=== PATIENT | male | born 1990 | race Caucasian/White ===

== ENCOUNTER 2020-08-01 02:06 | Emergency (ER) | payer BC, OTHER ==
[2020-08-01 02:36] VITALS: PULSE 75
[2020-08-01] MEDS ORDERED: Ketorolac 30 MG/ML SDV IM ONE (02:48)
[2020-08-01] MEDS ORDERED: Penicillin V Potassium Soln 250 MG/5 ML 100 ML Bottle PO ONE (02:48)
--- NOTE | 2020-08-01 02:48 | EDM.PDOC ---
ED HPI GENERAL MEDICAL PROBLEM - General Chief Complaint: General Stated Complaint: TOOTH PAIN Time Seen by Provider: 08/01/20 02:45 - History of Present Illness INITIAL COMMENTS - FREE TEXT/NARRATIVE: History of present illness: The patient has suffered for a month with a toothache in the right side of his jaw especially in the molar on the mandibular side. Tonight he was unable to sleep because it hurt so bad even the ice pack cardiac. He has bad teeth throughout but this is becoming making quite a problem. He has no systemic signs of infections. He has no heart murmur by history. He is not diabetic. He does not smoke. Pain is unbearable and severe. Cold air cold liquids hot liquids makes it worse. Review of systems: As per history of present illness and below otherwise all systems reviewed and negative. Past medical history: As per history of present illness and as reviewed below otherwise noncontributory. Surgical history: As per history of present illness and as reviewed below otherwise noncontri butory. Social history: No reported history of drug or alcohol abuse. Family history: As per history of present illness and as reviewed below otherwise noncontributory. Physical exam: Constitutional - well developed, well-nourished and in no acute distress HEENT -patient has buried #32 with incomplete eruption and exquisite tenderness in that area with periodontal disease as well. He has multiple caries including this teeth. Normocephalic, no evidence of trauma - external nose and mouth normal - no mass in neck and no JVD - mucosae moist EYES - full EOM, PERRL, no icterus - no evidence of inflammation, injection, or drainage Respiratory - no respiratory distress, equal bilateral expansion, lungs clear to auscultation and no abnormal lung sounds Cardiovascular - Regular Rhythm with S1 and S2 appreciated and no murmur, gallop or rub. Musculoskeletal no gross deformity of long bones or joints - no tenderness, swelling or edema Neurologic - Alert and oriented times four - CN II-XII grossly intact - motor sensory and coordination symmetrically normal Psychiatric - appropriate mood and affect with normal thought content Hematologic - No petechiae or purpura - mucosa appropriate color and sclera not pale - normal nail bed color and refill Integument - no rash or evidence of trauma - normal turgor Diagnostics: [] Therapeutics: [] Impression: [] Plan: [] Definitive disposition and diagnosis as appropriate pending reevaluation and review of above. tooth Pain Score (Numeric/FACES): 4 - Related Data Allergies Allergy/AdvReac Type Severity Reaction Status Date / Time No Known Allergies Allergy Verified 08/01/20 02:34 Home Meds: Home Meds Penicillin V Potassium [Veetids] 500 mg PO Q12HR #20 tab 08/01/20 [Rx] Past Medical History Cardiovascular History: Reports: None Respiratory History: Reports: None Gastrointestinal History: Reports: None Genitourinary History: Reports: None Psychiatric History: Reports: None Endocrine/Metabolic History: Reports: None Hematologic History: Reports: None - Infectious Disease History Infectious Disease History: Reports: None - Past Surgical History Other HEENT Surgeries/Procedures: 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 ED EXAM, GENERAL - Physical Exam Exam: See Below Free Text/Narrative:: My physical exam as in the HPI Course - Vital Signs Last Recorded V/S: Last Vital Signs Temp 98.6 F 08/01/20 02:34 Pulse 75 08/01/20 02:34 Resp 18 08/01/20 02:34 BP 144/91 H 08/01/20 02:34 Pulse Ox 97 08/01/20 02:34 - Orders/Labs/Meds Meds: Medications Discontinued Medications Generic Name Dose Route Start Last Admin Trade Name Miguel PRN Reason Stop Dose Admin Ketorolac Tromethamine 30 mg 08/01/20 02:48 Toradol IM 08/01/20 02:49 ONETIME ONE Penicillin V Potassium 500 mg 08/01/20 02:48 Veetids 250 Mg/5 Ml Soln PO 08/01/20 02:49 ONETIME ONE Departure - Departure Time of Disposition: 03:30 Disposition: Home, Self-Care 01 Condition: Good Clinical Impression: Periodontal disease, Dentalgia, Impacted third molar tooth - Discharge Information Prescriptions: Penicillin V Potassium [Veetids] 500 mg PO Q12HR #20 tab Referrals: PCP,None [Primary Care Provider] - Forms: ED Department Discharge Additional Instructions: Need to see a dentist. You can use topical Aspergum or anesthetic sprays such as Cepacol or Cepastat on the area. Ibuprofen or naproxen for pain. [facility] - Primary Care [address] [place] [id number] [facility] [address] [place] [id number] The following information is given to patients seen in the emergency department who are being discharged to home. This information is to outline your options for follow-up care. We provide all patients seen in our emergency department w ith a follow-up referral. The need for follow-up, as well as the timing and circumstances, are variable depending upon the specifics of your emergency department visit. If you don't have a primary care physician on staff, we will provide you with a referral. We always advise you to contact your personal physician following an emergency department visit to inform them of the circumstance of the visit and for follow-up with them and/or the need for any referrals to a consulting specialist. The emergency department will also refer you to a specialist when appropriate. This referral assures that you have the opportunity for follow-up care with a specialist. All of these measure are taken in an effort to provide you with optimal care, which includes your follow-up. Under all circumstances we always encourage you to contact your private physician who remains a resource for coordinating your care. When calling for follow-up care, please make the office aware that this follow-up is from your recent emergency room visit. If for any reason you are refused follow-up, please contact the [facility] Emergency Department at and asked to speak to the emergency department charge nurse. Sepsis Event Note (ED) - Evaluation Sepsis Screening Result: No Definite Risk - Focused Exam Vital Signs: Vital Signs Temp Pulse Resp BP Pulse Ox 08/01/20 02:34 98.6 F 75 18 144/91 H 97
[2020-08-01] MEDS ORDERED: Penicillin V Potassium 500 MG Tab ONE (04:02)
[2020-08-01 04:11] VITALS: BP 135/87
[2020-08-01] MEDS ORDERED: Penicillin V Potassium 500 MG Tab PO SCH (09:00)
== END 2020-08-01 04:43 | disposition home or self-care (01) ==
LOC: MW.ED 02:06
DX: K05.6 Periodontal disease, unspecified (principal); K01.1 Impacted teeth; Z87.891 Personal history of nicotine dependence
CPT/HCPCS: 96372; 99282; A9270; J1885

== ENCOUNTER 2020-08-02 09:41 | Emergency (ER) | payer BC ==
--- NOTE | 2020-08-02 10:09 | EDM.PDOC ---
ED HPI GENERAL MEDICAL PROBLEM - General Chief Complaint: ENT Problem Stated Complaint: COMPLICATIONS WITH IMPACTED TOOTH Time Seen by Provider: 08/02/20 10:06 Source of Information: Reports: Patient History Limitations: Reports: No Limitations - History of Present Illness INITIAL COMMENTS - FREE TEXT/NARRATIVE: HISTORY AND PHYSICAL: History of present illness: Patient is a 29-year-old male who presents to the emergency room with complaints of pain related to the impacted posterior molar. He was seen in the emergency room yesterday for this pain and was started on Pen-Vee K. He has been taking the medication but has not found any relief with managing his pain. He does have a dentists appointment on 08/05/2020 1 PM. Patient denies any fever, chills, headache, change in vision, syncope or near syncope. Denies any chest pain, back pain, shortness of breath or cough. Denies any abdominal pain, nausea, vomiting, diarrhea, constipation or dysuria. Has not noted any blood in urine or stool. Patient has been eating and drinking appropriately. Review of systems: As per history of present illness and below otherwise all systems reviewed and negative. Past medical history: As per history of present illness and as reviewed below otherwise noncontributory. Surgical history: As per history of present illness and as reviewed below otherwise noncontributor y. Social history: See social history for further information Family history: As per history of present illness and as reviewed below otherwise noncontributory. Physical exam: General: Well developed and well nourished. Alert and orientated x 3. Nontoxic in appearance and in no acute distress. Vital signs are stable and have been reviewed by me. Nursing notes were reviewed. HEENT: Atraumatic, normocephalic, pupils equal and reactive bilaterally, negative for conjunctival pallor or scleral icterus, mucous membranes moist, full dental caries and decay noted. The right posterior molar is impacted with tenderness along the abruption site. TMs normal bilaterally, throat clear, neck supple, nontender, trachea midline. No drooling or trismus noted. No meningeal signs. No hot potato voice noted. Lungs: Clear to auscultation, breath sounds equal bilaterally. Normal work of breathing, no accessory muscles used. Heart: S1S2, regular rate and rhythm without overt murmur Skin: Intact, warm, dry. No lesions or rashes noted. Hematologic: No petechiae or purpra. Mucosa appropriate color and normal nail bed color and refill. Extremities: Atraumatic, moves all extremities per self without difficulty or deficits, negative for cords or calf pain. Neurovascular unremarkable. Neuro: Awake, alert, oriented. Cranial nerves II through XII unremarkable. Cerebellum unremarkable. Motor and sensory unremarkable throughout. Exam nonfocal. Psychiatric: Mood and affect are appropriate. Normal thought process. Answering questions appropriately. Notes: I have spoken with the patient and discussed today's findings, in addition to providing specific details for plan of care. The patient is stable for discharge, counseling was provided and we discussed in great detail signs and symptoms that would prompt them to return to the Emergency Department. Medication, follow up and supportive care measures were reviewed and discussed. Voices understanding and is agreeable to plan of care. Denies any further questions or concerns at this time. Diagnostics: None Therapeutics: Dental Balls Prescription: [place] (#20) Impression: Impacted Molar Peridontal Disease Plan: 1. Please take the antibiotic as prescribed. 2. Tylenol and/or ibuprofen as needed for pain management. "Tooth Balls" have been given to you; apply along the gumline every 2-3 hours as needed. Do not swallow these; external use only. 3. Follow-up with a dentist on Wednesday for definitive care. Return to the ED as needed and as discussed. If your symptoms should worsen, new symptoms develop or any of the signs and symptoms we discussed should arise please return to the emergency room or call 911 (if needed). Definitive disposition and diagnosis as appropriate pending reevaluation and review of above. Oral/Mouth Pain Score (Numeric/FACES): 3 - Related Data Allergies Allergy/AdvReac Type Severity Reaction Status Date / Time No Known Allergies Allergy Verified 08/02/20 09:54 Home Meds: Home Meds Penicillin V Potassium [Veetids] 500 mg PO Q12HR #20 tab 08/01/20 [Rx] Acetaminophen/HYDROcodone [[place] 325-5 MG] 1 dose PO Q4H #20 tablet 08/02/20 [Rx] Past Medical History Cardiovascular History: Reports: None Respiratory History: Reports: None Gastrointestinal History: Reports: None Genitourinary History: Reports: None Psychiatric History: Reports: None Endocrine/Metabolic History: Reports: None Hematologic History: Reports: None - Infectious Disease History Infectious Disease History: Reports: None - Past Surgical History Other HEENT Surgeries/Procedures: 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 ED EXAM, ENT - Physical Exam Exam: See Below (See dictation) Course - Vital Signs Last Recorded V/S: Last Vital Signs Temp 97.3 F 08/02/20 09:55 Pulse 92 08/02/20 09:55 Resp 19 08/02/20 09:55 BP 135/91 H 08/02/20 09:55 Pulse Ox 96 08/02/20 09:55 - Orders/Labs/Meds Meds: Medications Discontinued Medications Generic Name Dose Route Start Last Admin Trade Name Freq PRN Reason Stop Dose Admin Benzocaine 2 each 08/02/20 10:11 Hurricaine One 20% MUCMEM 08/02/20 10:12 ONETIME ONE Lidocaine HCl 15 ml 08/02/20 10:11 Xylocaine 2% Viscous PO 08/02/20 10:12 ONETIME ONE Departure - Departure Time of Disposition: 10:20 Disposition: Home, Self-Care 01 Clinical Impression: Periodontal disease, Impacted molar - Discharge Information Prescriptions: Acetaminophen/HYDROcodone [[place] 325-5 MG] 1 dose PO Q4H #20 tablet Instructions: Impacted Molar Referrals: PCP,None [Primary Care Provider] - Forms: ED Department Discharge Additional Instructions: The following information is given to patients seen in the emergency department who are being discharged to home. This information is to outline your options for follow-up care. We provide all patients seen in our emergency department with a follow-up referral. The need for follow-up, as well as the timing and circumstances, are variable depending upon the specifics of your emergency department visit. If you don't have a primary care physician on staff, we will provide you with a referral. We always advise you to contact your personal physician following an emergency department visit to inform them of the circumstance of the visit and for follow-up with them and/or the need for any referrals to a consulting specialist. The emergency department will also refer you to a specialist when appropriate. This referral assures that you have the opportunity for follow-up care with a specialist. All of these measure are taken in an effort to provide you with optimal care, which includes your follow-up. Under all circumstances we always encourage you to contact your private physician who remains a resource for coordinating your care. When calling for follow-up care, please make the office aware that this follow-up is from your recent emergency room visit. If for any reason you are refused follow-up, please contact the [facility] Emergency Department at and asked to speak to the emergency department charge nurse. [facility] Primary [facility] [address] [place] [id number] [id number] Thank you for choosing the [facility] emergency department in [place] for your medical needs today. It was a pleasure caring for you. Today you were seen in the emergency department for dental pain. 1. Please take the antibiotic as prescribed. 2. Tylenol and/or ibuprofen as needed for pain management. "Tooth Balls" have been given to you; apply along the gumline every 2-3 hours as needed. Do not swallow these; external use only. 3. Follow-up with a dentist on Wednesday for definitive care. Return to the ED as needed and as discussed. If your symptoms should worsen, new symptoms develop or any of the signs and symptoms we discussed should arise please return to the emergency room or call 911 (if needed). Sepsis Event Note (ED) - Focused Exam Vital Signs: Vital Signs Temp Pulse Resp BP Pulse Ox 08/02/20 09:55 97.3 F 92 19 135/91 H 96
[2020-08-02] MEDS ORDERED: Benzocaine 20% Topical Spray UD MUCMEM ONE (10:11)
[2020-08-02] MEDS ORDERED: Lidocaine 2% Viscous Solution 15 ML Cup PO ONE (10:11)
[2020-08-02 16:08] VITALS: BP 127/84; PULSE 86
== END 2020-08-02 10:45 | disposition home or self-care (01) ==
LOC: MW.ED 09:41
DX: K05.6 Periodontal disease, unspecified (principal); K01.1 Impacted teeth
CPT/HCPCS: 99282; A9270

== ENCOUNTER 2022-01-31 12:48 | Emergency (ER) | payer BC ==
[2022-01-31 14:51] VITALS: BP 140/90; PULSE 80
== END 2022-01-31 13:45 | disposition home or self-care (01) ==
LOC: MW.ED 12:48
DX: K04.7 Periapical abscess without sinus (principal)
CPT/HCPCS: 41800; 99282-25

== ENCOUNTER 2022-05-12 08:18 | Emergency (ER) | payer OTHER, BC ==
[2022-05-12] MEDS: Sodium Chloride 0.9% 2.5 ML Syringe FLUSH PRN (08:29)
[2022-05-12] MEDS: Sodium Chloride 0.9% 10 ML Syringe FLUSH PRN (08:29)
[2022-05-12 09:10] LABS: BLOOD UREA NITROGEN,BUN 12 mg/dL (7.0-18.0); CARBON DIOXIDE,CO2 25.4 mmol/L (21.0-32.0); CHLORIDE,CL 104 mmol/L (98-107); GLUCOSE RANDOM 157 mg/dL (74-106); POTASSIUM,K 3.4 mmol/L (3.5-5.1); SODIUM,NA 140 mmol/L (136-148)
[2022-05-12 09:13] LABS: ESTIMATED GFR 118 mL/min (>60)
[2022-05-12] MEDS: Iopamidol 755 MG/ML 500 ML Multipack Bottle IVPUSH STA (10:27)
[2022-05-12] MEDS: Lidocaine 1% with EPINEPHrine 1:100,000 10 ML MDV INJECT ONE (10:52)
[2022-05-12] MEDS: Octyl 2-Cyanoacrylate 1 g/1 mL 1 APPLIC PEN TOP ONE (10:53)
[2022-05-12] MEDS: Ondansetron 4 MG Tab.DIS PO ONE (12:17)
[2022-05-12 12:33] VITALS: BP 126/68; PULSE 79
== END 2022-05-12 12:33 | disposition home or self-care (01) ==
LOC: MW.ED 08:18
DX: S42.021A Displaced fracture of shaft of right clavicle, initial encounter for closed fracture (principal); S01.111A Laceration without foreign body of right eyelid and periocular area, initial encounter; Z20.822 Contact with and (suspected) exposure to COVID-19; V19.9XXA Pedal cyclist (driver) (passenger) injured in unspecified traffic accident, initial encounter
CPT/HCPCS: 12011; 36415; 70450; 71045; 71260; 72125; 73030; 74177; 80053; 80307; 85025; 86850; 86900; 86901; 87635; 99284; A9270; J3490; Q9967; 99285; U0002

== ENCOUNTER 2024-06-23 09:50 | Day surgery (SDC) | payer BC ==
[2024-06-23] MEDS ORDERED: Lidocaine 2% 5 ML SDV ONE (11:00)
[2024-06-23] MEDS ORDERED: Propofol 200 MG/20 ML SDV ONE (11:00)
[2024-06-23] MEDS: Lactated Ringers 1,000 ML IV SCH (11:03)
[2024-06-23] MEDS ORDERED: Lactated Ringers 1,000 ML IV SCH (11:45)
[2024-06-23 12:28] VITALS: BP 121/78; PULSE 81
== END 2024-06-23 12:15 | disposition home or self-care (01) ==
LOC: MW.SDS 09:50
PROVIDERS: ATTEND Surgery
DX: K20.90 Esophagitis, unspecified without bleeding (principal); K44.9 Diaphragmatic hernia without obstruction or gangrene; F31.9 Bipolar disorder, unspecified; F90.9 Attention-deficit hyperactivity disorder, unspecified type; Z79.899 Other long term (current) drug therapy
CPT/HCPCS: 43239; J2704; J7120; 00731; J3490